=== PATIENT | female | born 1980 | race Caucasian/White ===

== ENCOUNTER 2017-10-12 17:24 | Emergency (ER) | payer OTHER ==
[~2017-10-12] VITALS: Ht 157.5 cm; Wt 68.0 kg
[~2017-10-12 17:24] MED LIST: ACHYD1T PO; DCS100C PO; HYDR1TAB PO; IBP800T PO; PREN-47 PO
--- NOTE | 2017-10-12 18:19 | ED Neck-Back Pain/Injury ---
General Chief Complaint: Head/Cervical Problems Stated Complaint: NECK PAIN Nursing Triage Note: PT REPORTS SHE WAS MOVING ALOT YESTERDAY AND TODAY WHEN SHE WAS TAKING A SHOWER SHE FELT A CRACK IN HER NECK AND HAS HAD STIFFNESS/PAIN SINCE. Nursing Sepsis Screen: No Definite Risk Source of Information: Patient, Other Exam Limitations: No Limitations History of Present Illness Date Seen by Provider: Oct 12, 2017 Time Seen by Provider: 18:07 Initial Comments Patient presents to ER by private conveyance with her significant other and chief complaint that night she was in the shower washing her hair not doing anything unusual but she felt a crack in her neck and she turned her neck sideways and started having some pain in her neck. She has history of chronic neck pain for which her outpatient provider was working up and had planned to do a C-spine x-ray but she has not got that done yet. She's been using ibuprofen 800 mg several times a day. She does not want anything that would make her drowsy. She does not have any incontinence or hesitancy of bowel or bladder. No numbness or falls. She is feeling a tingling sensation that goes from the base of her neck to the back of her head and she feels like she has gotten headaches from the same kind of neck pain in the past but not having one right now. She has no double vision, blurry vision, difficulty swallowing or breathing. Allergies and Home Medications Allergies Coded Allergies: No Known Drug Allergies (Unverified , 02/23/12) Home Medications Ibuprofen 800 Mg Tab, 800 MG PO Q8HR PRN, #30 Prescribed by: RAJAN NOVAK on 02/22/13 1531 Prednisone 20 Mg Tab, 20 MG PO BID for 5 Days, #10 Ref 0 Prescribed by: GISELA YADAV on 10/12/17 1820 Constitutional: No chills, No fever EENTM: No ear discharge, No ear pain Respiratory: No cough, No short of breath Cardiovascular: No chest pain, No palpitations Gastrointestinal: No constipation, No diarrhea, No nausea : No Past Blypeoe-Jnawvr-Hqbfhu Hx Patient Social History Alcohol Use: Occasionally Uses Recreational Drug Use: No Smoking Status: Former Smoker Former Smoker, Quit: Sep 29, 2012 Recent Foreign Travel: No Contact w/Someone Who Travel: No Recent Infectious Disease Expo: No Recent Hopitalizations: Yes (CHILDBIRTH, 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, URI IN HIGH SCHOOL) Physical Abuse: No Sexual Abuse: No Mistreated: No Fear: No Surgeries History of Surgeries: Yes (C/S X3 ) Surgeries: Section Respiratory History of Respiratory Disorde: No Cardiovascular History of Cardiac Disorders: No Neurological History of Neurological Disord: No Reproductive System Hx Reproductive Disorders: No Gastrointestinal History of Gastrointestinal Di: No Musculoskeletal History of Musculoskeletal Dis: Yes (HX OF NECK PAIN) Endocrine History of Endocrine Disorders: No HEENT History of HEENT Disorders: No Cancer History of Cancer: No Psychosocial History of Psychiatric Problem: No Suicide Risk Score: 0 Blood Transfusions History of Blood Disorders: Yes (ANEMIA) Family Medical History Significant Family History: Diabetes, Hypertension, Stroke Physical Exam Vital Signs Vital Sign - Last 12Hours 10/12/17 17:35 Pulse 105 Resp 18 B/P (MAP) 135/72 (93) Pulse Ox 100 Capillary Refill : Less Than 3 Seconds General Appearance: No Apparent Distress, WD/WN HEENT: PERRL/EOMI, Normal ENT Inspection, Pharynx Normal Neck: Normal Inspection, Supple, Limited Range of Motion (Secondary to pain and tenderness), No Tender Lateral, Tender Midline (Mildly tender at C6 and C7 along the vertebral spine but not laterally) Cardiovascular: No Edema, Normal Peripheral Pulses Respiratory: No Accessory Muscle Use, No Respiratory Distress Extremity: Normal Inspection, Non Tender, No Pedal Edema Neurologic/Psychiatric: Alert, Oriented x3, No Motor/Sensory Deficits, Normal Mood/Affect, cub reporter II-XII Norm as Tested Skin: Normal Color, Warm/Dry Progress/Results/Core Measures Results/Orders My Orders Orders - GISELA YADAV Cervical Spine 3 Views Or Less (10/12/17 18:13) Vital Signs/I&O Vital Sign - Last 12Hours 10/12/17 17:35 Pulse 105 Resp 18 B/P (MAP) 135/72 (93) Pulse Ox 100 Blood Pressure Mean: 93 Progress Note : Time: 18:17 Progress Note We discussed the potential workup and the patient would like to go get a C- spine know her from was not that severe. She is not in favor however of any medicine that'll make her drowsy so she does not want muscle relaxers. She would be okay with a short course of prednisone. She stated emphatically that she is not and that she will check a emergency test on her own at home. Diagnostic Imaging Diagonstic Imaging: Xray Plain Films/CT/US/NM/MRI: c-spine Comments No acute osseous abnormality, subluxation, fracture or misalignment of spine seen on plain film x-ray. [facility] [place], [place] NAME: [facility] REC#: [id number] PT STATUS: REG ER : 1980 PHYSICIAN: GISELA YADAV MD ADMIT DATE: 10/12/17/ER Draft Date of Exam:10/12/17 CERVICAL SPINE 3 VIEWS OR LESS INDICATION: Neck pain. COMPARISON: None available. TECHNIQUE: Three views of the cervical spine were obtained. FINDINGS: No acute fracture or traumatic malalignment. Cervical spine is straightened which could be positional or due to muscle spasm. No soft tissue swelling in the prevertebral space. Intervertebral disc space heights are well maintained. The patient is edentulous. IMPRESSION: No acute traumatic injury in the cervical spine by radiography. Dictated on workstation # [id number] Dict: 10/12/17 1844 Trans: 10/12/17 184 [facility] [id number] Interpreted by: JEREMIAH WHALEN MD Electronically signed by: Reviewed: Reviewed by Me Departure Impression Impression: Primary Impression: Neck pain Disposition: 01 HOME, SELF-CARE Condition: Stable Departure-Patient Inst. Decision time for Depature: 18:58 Referrals: NOEMI DOWNING MD (PCP/Family) Primary Care Physician Patient Instructions: Core Strengthening Exercises on Back or on Hands and Knees, Neck Sprain (DC) Add. Discharge Instructions: For the first couple days you can apply ice directly to your neck for 20 minutes every 4 hours. 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 You should also use ibuprofen 800 mg every 8 hours [id number] for Naprosyn/Aleve 2 capsules twice a day for the next 2 weeks. You can use Tylenol 1000 mg in addition to this every 8 hours as needed for pain. Plan to follow up with your primary care physician if your chronic neck pain continues to be an issue. Please review the handout on core strengthening exercises and seek to strengthen your neck and back to avoid further chronic back pain issues. All discharge instructions reviewed with patient and/or family. Voiced understanding. Scripts Prednisone (Prednisone) 20 Mg Tab 20 MG PO BID for 5 Days, #10 TAB 0 Refills Prov: GISELA YADAV 10/12/17 Copy Copies To 1: NOEMI DOWNING MD, TITUS J Oct 12, 2017 18:19
[2017-10-12] MEDS ORDERED: PRD20T PO ×2 (18:20→19:06)
--- NOTE | 2017-10-12 18:48 | Diagnostic Imaging Report ---
INDICATION: Neck pain. COMPARISON: None available. TECHNIQUE: Three views of the cervical spine were obtained. FINDINGS: No acute fracture or traumatic malalignment. Cervical spine is straightened which could be positional or due to muscle spasm. No soft tissue swelling in the prevertebral space. Intervertebral disc space heights are well maintained. The patient is edentulous. IMPRESSION: No acute traumatic injury in the cervical spine by radiography. Dictated by: Dictated on workstation # [id number]
[2017-10-12 19:03] VITALS: BP 135/72
--- OUTSIDE RECORDS SUMMARY | 2017-10-13 10:45 | XMS REPORT | Continuity of Care Document ---
Author Author [facility] Organization [facility] Address Unknown Phone Unavailable Allergies Active Description Code Type Severity Reaction Onset Reported/Identified Relationship to Patient Clinical Status Yes No Known Drug Allergies [id number] Drug Allergy Unknown N/A 02/23/2012 Medications There is no data. Problems Date Dx Coded Attending Type Code Diagnosis Diagnosed By 02/23/2012 Ot 646.83 PREG COMPL NEC-ANTEPART 02/23/2012 Ot 789.09 ABDOMINAL PAIN, OTHER SPECIFIED SITE 02/23/2012 Ot 847.9 SPRAIN OF BACK NOS 02/23/2012 Ot E000.8 OTHER EXTERNAL CAUSE STATUS 02/23/2012 Ot E928.9 ACCIDENT NOS 05/21/2012 Ot 644.03 THRT [facility] LAB[facility]-ANTEPART 07/17/2012 Ot 654.21 PREV DELIVRY W/ OR W/O MENT ANT 07/17/2012 Ot 655.71 DECR MOVEMNT DEL W/W/O MENTION OF 07/17/2012 Ot 658.01 OLIGOHYDRAMNIOS-DELIVER 07/17/2012 Ot V04.81 ND FOR PROPHYLACTIC VACCIN AND INOCULATI 07/17/2012 Ot V06.1 DIPHTHERIA- TETANUS-PERTUSSIS, COMBINED [ 07/17/2012 Ot V27.0 DELIVER- SINGLE LIVEBORN 02/22/2013 PRINCESS POE, RAJAN Moss Ot 786.50 CHEST PAIN NOS 02/22/2013 PRINCESS POE, RAJAN Moss Ot 786.52 PAINFUL RESPIRATION 04/09/2015 Ot 620.2 04/09/2015 Ot V28.89 05/17/2016 Ot 620.2 OVARIAN CYST NEC/NOS 05/17/2016 Ot V28.89 OTHER SPECIFIED SCREENING 05/29/2017 Ot 649.63 UTERINE SIZE DATE DISCREPANCY, ANTEPARTU 05/29/2017 Ot 644.03 THRT [facility] LAB[facility]-ANTEPART 05/29/2017 Ot 649.63 UTERINE SIZE DATE DISCREPANCY, ANTEPARTU 05/29/2017 Ot 654.23 PREV DELIVERY, ANTEPARTUM COND 05/29/2017 Ot 658.03 OLIGOHYDRAMNIOS-ANTEPAR 05/29/2017 Ot 654.23 PREV DELIVERY, ANTEPARTUM COND 05/29/2017 Ot V72.63 PRE- PROCEDURAL LABORATORY EXAMINATION 05/29/2017 Ot V74.8 SCREEN- BACTERIAL DIS NEC Procedures Code Description Performed By Performed On 72.9 INSTRUMENT DELIVERY NOS 07/14/2012 74.1 LOW CERVICAL 07/14/2012 Results There is no data. Encounters ACCT No. Visit Date/Time Discharge Status Pt. Type Provider Facility Loc./Unit Complaint [id number] 02/22/2013 13:10:00 02/22/2013 15:43:00 DIS Emergency PRINCESS OPE, RAJAN Moss [facility] ER PAIN IN CHEST UPPER BACK PAIN AND R ARM PAIN [id number] 07/14/2012 06:15:00 Document Registration [id number] 07/11/2012 11:54:00 Document Registration [id number] 06/06/2012 11:07:00 Document Registration [id number] 05/20/2012 09:04:00 Document Registration [id number] 03/28/2012 10:25:00 Document Registration [id number] 02/22/2012 23:11:00 Document Registration [id number] 12/14/2011 10:09:00 Document Registration
== END 2017-10-12 19:03 | disposition home or self-care (01) ==
LOC: EDUNIT# 17:24 → ER 17:26
DX: M54.2 Cervicalgia (principal); Z87.891 Personal history of nicotine dependence; Z87.59 Personal history of other complications of pregnancy, childbirth and the puerperium
CPT/HCPCS: 72040; 99282

== ENCOUNTER 2021-03-13 01:06 | Emergency (ER) | payer OTHER ==
[~2021-03-13] VITALS: Ht 158 cm; Wt 68.0 kg
[~2021-03-13 01:06] MED LIST changes: +PRD20T PO
[2021-03-13 01:15] VITALS: BP 128/78
--- NOTE | 2021-03-13 01:30 | ED Integumentary General ---
General Chief Complaint: Bite-Animal/Human/Insect Stated Complaint: L THIGH INSECT BITE Source: patient Exam Limitations: no limitations History of Present Illness Date Seen by Provider: Mar 13, 2021 Time Seen by Provider: 01:10 Initial Comments Patient to ER by private conveyance from home with chief complaint of a mildly painful mildly itchy red patch that has been growing since night, Saturday morning over her left thigh. She also had a little itchy rash in her right armpit and behind her right knee which have just about gone away. She says the redness is getting smaller and she is on doxycycline from [facility] however she was concerned with a little area of purple started to grow in the center of the rash. She is not sure what bit her. She was out with her kids fishing when it started. She is not having any fevers or chills. She is not having any dysuria diarrhea chest pain shortness of air. Allergies and Home Medications Allergies Coded Allergies: No Known Drug Allergies (Unverified , 02/23/12) Home Medications Ibuprofen 800 Mg Tab, 800 MG PO Q8HR PRN Prescribed by: RAJAN NOVAK on 02/22/13 1531 Prednisone 20 Mg Tab, 20 MG PO BID Prescribed by: GISELA YADAV on 10/12/17 1906 Patient Home Medication List Home Medication List Reviewed: Yes Review of Systems Review of Systems Constitutional: No chills, No diaphoresis EENTM: No ear discharge, No ear pain Respiratory: No cough, No short of breath Cardiovascular: No chest pain, No edema Gastrointestinal: No abdominal pain, No nausea, No vomiting Genitourinary: No discharge, No dysuria Musculoskeletal: No back pain, No joint pain Skin: change in color, pruritus, rash Past Rwzhsam-Abstwa-Qqdcln Hx Patient Social History Alcohol Use: Denies Use Smoking Status: Former Smoker Type Used: Cigarettes Former Smoker, Quit: Sep 29, 2012 Recent Hopitalizations: No Immunizations Up To Date Tetanus Booster (TDap): Unknown Seasonal Allergies Seasonal Allergies: No Past Medical History Surgeries: Yes (C/S X3 ) Section Respiratory: No Cardiac: No Neurological: No Reproductive Disorders: No Genitourinary: No Gastrointestinal: No Musculoskeletal: Yes (HX OF NECK PAIN) Endocrine: No HEENT: No Cancer: No Psychosocial: No Integumentary: Yes Recent Skin Changes Blood Disorders: Yes (ANEMIA) Family Medical History Diabetes, Hypertension, Stroke Physical Exam Vital Signs Capillary Refill : General Appearance: WD/WN, no apparent distress HEENT: PERRL/EOMI, pharynx normal Neck: full range of motion, normal inspection Cardiovascular: normal peripheral pulses, regular rate, rhythm Respiratory: no respiratory distress, no accessory muscle use Extremities: normal range of motion, normal capillary refill Neurologic/Psychiatric: alert, normal mood/affect, oriented x 3 Skin: other (Large round erythematous, macular rash centered around a small area of purple with 2 small possible punctate wounds on her left medial thigh. Rash is about 10 cm radius. Erythema is blanchable with a few little petechiae scattered throughout. No palpable fluctuance or induration.) Progress/Results/Core Measures Progress Progress Note : Time: 01:28 Progress Note Suspect she had a mild envenomation from a spider but since it has been 4 days it is dubious whether glucagon will have any benefit. It seems at the redness is getting better she only came in because of the new darkened center. Counseling was given on what to expect for him spider bite/envenomation. Probably this is immune systems reaction and cleaning up damaged tissue and it should resolve in the next couple weeks. We encouraged her to follow-up with her primary care doctor and continue taking the doxycycline. Return precautions were given. Patient is in agreement with this plan. Discussed skin emollients and capsaicin oil as well as warm, moist heat for pain. Tylenol and ibuprofen. Departure Impression Primary Impression: Spider bite wound Qualified Codes: T63.301A - Toxic effect of unspecified spider venom, accidental (unintentional), initial encounter Disposition: HOME, SELF-CARE Condition: Stable Departure-Patient Inst. Decision time for Depature: 01:29 Referrals: MIGNON FARIA MD,NOEMI Ocampo MD (PCP/Family) Primary Care Physician Patient Instructions: Spider Bites Add. Discharge Instructions: Warm moist heat applied over the area as necessary for pain or discomfort. Capsaicin oil may be helpful for pain. Loratadine/Claritin or Zyrtec/cetirizine 10 mg once or twice a day as necessary for itching. Return to the ER promptly for shortness of air, difficulty swallowing or other worrisome symptoms. This should continue to decrease in size and may have some funny discoloration in the center related to the immune system cleaning up the damaged tissue over the next 1 to 2 weeks. Follow-up with your primary care doctor in the next 1 to 2 weeks for reexamination. All discharge instructions reviewed with patient and/or family. Voiced und erstanding. GISELA YADAV Mar 13, 2021 01:30
== END 2021-03-13 01:45 | disposition home or self-care (01) ==
LOC: EDUNIT# 01:06 → ER 01:09
DX: S70.362A Insect bite (nonvenomous), left thigh, initial encounter (principal); Z87.891 Personal history of nicotine dependence; Z79.52 Long term (current) use of systemic steroids; W57.XXXA Bitten or stung by nonvenomous insect and other nonvenomous arthropods, initial encounter
CPT/HCPCS: 99283

== ENCOUNTER 2023-06-06 09:27 | Emergency (ER) | payer OTHER ==
[~2023-06-06] VITALS: Ht 157.5 cm; Wt 78.5 kg
[2023-06-06] MEDS ORDERED: NS IV 1000 ML 1,000 ML IV STA (09:55)
--- NOTE | 2023-06-06 09:59 | ED Abdominal Pain ---
General Chief Complaint: Abdominal/GI Problems Stated Complaint: ABD PAIN | DIARRHEA Source of Information: Patient Exam Limitations: No Limitations History of Present Illness Date Seen by Provider: Jun 06, 2023 Time Seen by Provider: 09:46 Initial Comments Patient is a 43-year-old female who presents to the emergency department today with a chief complaint of abdominal cramping, several bouts of bloody diarrhea onset around 130 this morning. Patient states it was nausea that initially woke her up with a lot of mouth watering. She states after she was able to go to the bathroom she had at least 5 subsequent bowel movements that were grossly bloody. She has never had anything like this before. She was thinking she might have food poisoning. She recently quit a very stressful job. She does not smoke she does not drink excessive caffeine. No family history of colon cancer. She is on semaglutide for weight management. She recently increased her dose this we ek. No fevers or chills. She is not nauseated currently. Her pain is a "3" right now it was a "12" in the waiting room. No burning with urination, urgency or frequency. No abnormal vaginal discharge. She is scheduled to start her menstrual cycle "any day". Not on control. Only prior abdominal surgeries are C-sections. Timing/Duration: 4-6 Hours Severity/Quality: Severe, Aching, Cramping Location: LLQ Radiation: No Radiation Activities at Onset: Sleeping Associated Symptoms: Nausea/Vomiting (Nausea without vomiting) Allergies and Home Medications Allergies Coded Allergies: No Known Drug Allergies (Unverified , 02/23/12) Patient Home Medication List Home Medication List Reviewed: Yes Ciprofloxacin HCl (Ciprofloxacin HCl) 500 Mg Tablet, 500 MG PO BID Prescribed by: JIMMY CASEY on 06/06/23 1323 Hydrocodone/Acetaminophen (Hydrocodone-Acetamin 5-325 mg) 5 Mg-325 Mg Tablet, 1 TAB PO Q6H PRN for PAIN-MODERATE (5-7) Prescribed by: JIMMY CASEY on 06/06/23 1324 Ibuprofen (Motrin) 800 Mg Tab, 800 MG PO Q8HR PRN Prescribed by: RAJAN NOVAK on 02/22/13 1531 Metronidazole (Metronidazole) 500 Mg Tablet, 500 MG PO BID Prescribed by: JIMMY CASEY on 06/06/23 1323 Prednisone (Prednisone) 20 Mg Tab, 20 MG PO BID Prescribed by: GISELA YADAV on 10/12/17 1906 Review of Systems Review of Systems Constitutional: see HPI EENTM: No Symptoms Reported Respiratory: No Symptoms Reported Cardiovascular: No Symptoms Reported Gastrointestinal: Abdominal Pain, Blood Streaked Stools, Nausea Genitourinary: No Symptoms Reported, Discharge Skin: no symptoms reported All Other Systems Reviewed Negative Unless Noted: Yes Past Qmcmqts-Vsovji-Wddbha Hx Patient Social History Tobacco Use?: No Use of E-Cig and/or Vaping dev: No Substance use?: No Alcohol Use?: No Pt feels they are or have been: No Immunizations Up To Date Tetanus Booster (TDap): Unknown Seasonal Allergies Seasonal Allergies: No Past Medical History Surgeries: Yes (C/S X3 ) Section Respiratory: No Cardiac: No Neurological: No Reproductive Disorders: No Genitourinary: No Gastrointestinal: No Musculoskeletal: Yes (HX OF NECK PAIN) Endocrine: No HEENT: No Cancer: No Psychosocial: No Integumentary: Yes Recent Skin Changes Blood Disorders: Yes (ANEMIA) Family Medical History Diabetes, Hypertension, Stroke Physical Exam Vital Signs Vital Signs - First Documented 06/06/23 09:40 Temp 36.4 Pulse 96 Resp 19 B/P (MAP) 130/88 (102) Pulse Ox 97 O2 Delivery Room Air Capillary Refill : Height/Weight/BMI Height: 5'2.00" Weight: 150lbs. oz. 68.646391gs; 27.00 BMI Method:Stated General Appearance: WD/WN, no apparent distress HEENT: PERRL/EOMI Neck: normal inspection Respiratory: lungs clear, normal breath sounds, no respiratory distress, no ac cessory muscle use Cardiovascular: regular rate, rhythm Peripheral Pulses: 2+ Radial Pulses (R), 2+ Radial Pulses (L) Gastrointestinal: soft, abnormal bowel sounds (Hypoactive); No distended; tenderness (Left lower quadrant) Extremities: normal range of motion, normal inspection, no pedal edema, normal capillary refill Neurologic/Psychiatric: alert, normal mood/affect, oriented x 3 Skin: normal color, warm/dry Progress/Results/Core Measures Results/Orders Lab Results Laboratory Tests Test 06/06/23 09:49 Range/Units White Blood Count 9.8 4.3-11.0 10^3/uL Red Blood Count 4.91 3.80-5.11 10^6/uL Hemoglobin 13.9 11.5-16.0 g/dL Hematocrit 41 35-52 % Mean Corpuscular Volume 84 80-99 fL Mean Corpuscular Hemoglobin 28 25-34 pg Mean Corpuscular Hemoglobin Concent 34 32-36 g/dL Red Cell Distribution Width 13.0 10.0-14.5 % Platelet Count 285 130-400 10^3/uL Mean Platelet Volume 10.3 9.0-12.2 fL Immature Granulocyte % (Auto) 0 % Neutrophils (%) (Auto) 76 H 42-75 % Lymphocytes (%) (Auto) 18 12-44 % Monocytes (%) (Auto) 6 0-12 % Eosinophils (%) (Auto) 0 0-10 % Basophils (%) (Auto) 0 0-10 % Neutrophils # (Auto) 7.4 1.8-7.8 10^3/uL Lymphocytes # (Auto) 1.7 1.0-4.0 10^3/uL Monocytes # (Auto) 0.6 0.0-1.0 10^3/uL Eosinophils # (Auto) 0.0 0.0-0.3 10^3/uL Basophils # (Auto) 0.0 0.0-0.1 10^3/uL Immature Granulocyte # (Auto) 0.0 0.0-0.1 10^3/uL Sodium Level 137 135-145 MMOL/L Potassium Level 3.5 L 3.6-5.0 MMOL/L Chloride Level 104 98-107 MMOL/L Carbon Dioxide Level 23 21-32 MMOL/L Anion Gap 10 5-14 MMOL/L Blood Urea Nitrogen 8 7-18 MG/DL Creatinine 0.73 0.60-1.30 MG/DL Estimat Glomerular Filtration Rate 104 BUN/Creatinine Ratio 11 Glucose Level 100 70-105 MG/DL Calcium Level 10.0 8.5-10.1 MG/DL Corrected Calcium 9.8 8.5-10.1 MG/DL Total Bilirubin 0.7 0.1-1.0 MG/DL Aspartate Amino Transf (AST/SGOT) 24 5-34 U/L Alanine Aminotransferase (ALT/SGPT) 30 0-55 U/L Alkaline Phosphatase 70 40-136 U/L Total Protein 7.8 6.4-8.2 GM/DL Albumin 4.3 3.2-4.5 GM/DL My Orders Orders - JIMMY CASEY MD Ed Iv/Invasive Line Start (06/06/23 09:55) Cbc And Automated Diff (06/06/23 09:55) Comprehensive Metabolic Panel (06/06/23 09:55) Urine Bedside (06/06/23 09:55) Ns Iv 1000 Ml (Ns Iv 1000 Ml) (06/06/23 09:55) Ct Abdomen/Pelvis W (06/06/23 10:43) Iohexol Injection (Omnipaque 350 Mg/Ml 1 (06/06/23 11:00) Ns (Ivpb) 100 Ml (Sodium Chloride 0.9% 1 (06/06/23 11:00) Medications Given in ED Vital Signs/I&O 06/06/23 06/06/23 09:40 13:31 Temp 36.4 36.4 Pulse 96 88 Resp 19 19 B/P (MAP) 130/88 (102) 126/79 Pulse Ox 97 97 O2 Delivery Room Air Room Air Progress Progress Note : Time: 16:00 Progress Note Patient seen and evaluated by me. Evaluation today includes physical exam, CBC, Chem-12, CT abdomen and pelvis with IV contrast. Patient's physical exam pertinent for well-developed well-nourished obese female in no acute distress. Heart is regular, lungs are clear. Abdomen is soft and tender in the left lower quadrant without involuntary guarding or rebound. No lower extremity edema. Vital signs are stable. Differential diagnosis includes gastroenteritis, colitis/diverticulitis. Labs independently reviewed and interpreted by me. Her CBC is normal, normal white blood cell count with 76% segmented neutrophils. Chem-12 remarkable only for mildly low potassium at 3.5. Radiologist read on her CT shows diffuse colonic wall thickening consistent with pancolitis. Patient is treated in the emergency department with a liter of normal saline. She did not require pain medications. As far as having her bloody stool she has a normal hemoglobin no concern for needing transfusion. I discussed with her the need for antibiotics over the next week, Cipro and Flagyl. These prescriptions are sent to her local pharmacy. Instructions for Tylenol and/or ibuprofen for pain management. Return precautions provided in both verbal and written format. Advised to follow-up with general surgery as she will likely need a colonoscopy after this infection is better. She verbalized understanding of the discharge instructions. All questions were sought and answered. Patient is stable for discharge Diagnostic Imaging Diagonstic Imaging: CT Comments [facility] [place], [place] NAME: KWAME DIXON [facility] REC#: [id number] PT STATUS: DEP ER : 1980 PHYSICIAN: JIMMY CASEY MD ADMIT DATE: 06/06/23/ER Signed Date of Exam:06/06/23 CT ABDOMEN/PELVIS W PROCEDURE: CT abdomen and pelvis with contrast. TECHNIQUE: Multiple contiguous axial images were obtained through the abdomen and pelvis after administration of intravenous contrast. Auto Exposure Controls were utilized during the CT exam to meet ALARA standards for radiation dose reduction. All CT scans use one or more of the following dose optimizing techniques: automated exposure control, MA and/or KvP adjustment based on patient size and exam type or iterative reconstruction. INDICATION: Severe abdominal pain and bloody stools. No prior studies are available for comparison. FINDINGS: Lung bases are clear. The liver and gallbladder are unremarkable. There is no biliary ductal dilatation. The pancreas and spleen are unremarkable. No adrenal mass is identified. Kidneys are unremarkable. Aorta is nonaneurysmal. Bowel loops are nonobstructed. There appears to be some generalized colonic wall thickening suggestive of nonspecific colitis. No free fluid or fluid collection is identified. The uterus and bladder are unremarkable. IMPRESSION: There appears to be generalized colonic wall thickening consistent with pancolitis. No bowel obstruction or abscess formation is identified. Dictated by: Dictated on workstation # [id number] Dict: 06/06/23 1132 Trans: 06/06/23 1608 [id number] Interpreted by: RONALD BOWENS MD Electronically signed by: RONALD BOWENS MD 06/06/23 1608 Departure Impression Primary Impression: Colitis Additional Impression: Abdominal pain Qualified Codes: R10.32 - Left lower quadrant pain Disposition: 01 HOME, SELF-CARE Condition: Improved Departure-Patient Inst. Decision time for Depature: 13:21 Referrals: MIGNON FARIA MD (PCP/Family) Primary Care Physician Patient Instructions: Colitis (DC) Add. Discharge Instructions: [place] diet over the next 48 hours, avoiding anything spicy, heavily fatty. Take the antibiotics as directed over the next 7 days, Flagyl/metronidazole and ciprofloxacin. It is a good idea to take an [id number] probiotic while you are on the antibiotics. I have prescribed you some hydrocodone as needed for more severe pain. Otherwise Tylenol and ibuprofen should be taken with food. If you develop a fever over 101 with worsening pain, bleeding, diarrhea or other emergent, concerning symptoms please return to the emergency room for reevaluation. Please contact your primary care doctor for a follow-up appointment. I have also put Dr. MADDEN's contact information on this paperwork. You likely will need a follow-up colonoscopy. Scripts Metronidazole (Metronidazole) 500 Mg Tablet 500 MG PO BID, #14 TAB 0 Refills Prov: JIMMY CASEY MD 06/06/23 Ciprofloxacin HCl (Ciprofloxacin HCl) 500 Mg Tablet 500 MG PO BID, #14 TAB Prov: JIMMY CASEY MD 06/06/23 Hydrocodone/Acetaminophen (Hydrocodone-Acetamin 5-325 mg) 5 Mg-325 Mg Tablet 1 TAB PO Q6H PRN for PAIN-MODERATE (5-7), #12 TAB Prov: JIMMY CASEY MD 06/06/23 Work/School Note: Work Release Form Date Seen in the Emergency Department: Jun 06, 2023 Return to Work: Jun 10, 2023 Copy Copies To 1: MIGNON FARIA MD Copies To 2: DENZEL MADDEN MD, KATHRYN M MD Jun 06, 2023 09:59
[2023-06-06 10:01] LABS: BASOPHILS % (AUTO) 0 % (0-10); EOSINOPHILS % (AUTO) 0 % (0-10); HEMATOCRIT 41 % (35-52); HEMOGLOBIN 13.9 g/dL (11.5-16.0); LYMPHOCYTES # (AUTO) 1.7 10^3/uL (1.0-4.0); LYMPHOCYTES % (AUTO) 18 % (12-44); MEAN CORPUSCULAR HEMOGLOBIN 28 pg (25-34); MEAN CORPUSCULAR HGB CONC 34 g/dL (32-36); MEAN CORPUSCULAR VOLUME 84 fL (80-99); MEAN PLATELET VOLUME 10.3 fL (9.0-12.2); MONOCYTES # (AUTO) 0.6 10^3/uL (0.0-1.0); MONOCYTES % (AUTO) 6 % (0-12); NEUTROPHILS # (AUTO) 7.4 10^3/uL (1.8-7.8); NEUTROPHILS % (AUTO) 76 % (42-75); PLATELET COUNT 285 10^3/uL (130-400); WHITE BLOOD COUNT 9.8 10^3/uL (4.3-11.0)
[2023-06-06 10:09] LABS: ALBUMIN 4.3 GM/DL (3.2-4.5); POTASSIUM 3.5 MMOL/L (3.6-5.0)
[2023-06-06 10:11] LABS: TOTAL PROTEIN 7.8 GM/DL (6.4-8.2)
[2023-06-06 10:13] LABS: BILIRUBIN,TOTAL 0.7 MG/DL (0.1-1.0)
[2023-06-06 10:15] LABS: CREATININE SERUM 0.73 MG/DL (0.60-1.30)
[2023-06-06] MEDS ORDERED: NS 100 ML (IVPB) BAG IV ONE (11:00)
[2023-06-06] MEDS ORDERED: IOHEXOL 350 MG/ML 100 ML (OMNIPAQUE 350) VIAL IV ONE (11:00)
--- NOTE | 2023-06-06 11:45 | Diagnostic Imaging Report ---
PROCEDURE: CT abdomen and pelvis with contrast. TECHNIQUE: Multiple contiguous axial images were obtained through the abdomen and pelvis after administration of intravenous contrast. Auto Exposure Controls were utilized during the CT exam to meet ALARA standards for radiation dose reduction. All CT scans use one or more of the following dose optimizing techniques: automated exposure control, MA and/or KvP adjustment based on patient size and exam type or iterative reconstruction. INDICATION: Severe abdominal pain and bloody stools. No prior studies are available for comparison. FINDINGS: Lung bases are clear. The liver and gallbladder are unremarkable. There is no biliary ductal dilatation. The pancreas and spleen are unremarkable. No adrenal mass is identified. Kidneys are unremarkable. Aorta is nonaneurysmal. Bowel loops are nonobstructed. There appears to be some generalized colonic wall thickening suggestive of nonspecific colitis. No free fluid or fluid collection is identified. The uterus and bladder are unremarkable. IMPRESSION: There appears to be generalized colonic wall thickening consistent with pancolitis. No bowel obstruction or abscess formation is identified. Dictated by: Dictated on workstation # [id number]
[2023-06-06] MEDS ORDERED: METR-145 PO (13:23)
[2023-06-06] MEDS ORDERED: CIPR500T5 PO (13:23)
[2023-06-06] MEDS ORDERED: ACHD5005 PO (13:23)
[2023-06-06 13:31] VITALS: BP 126/79
== END 2023-06-06 13:31 | disposition home or self-care (01) ==
LOC: EDUNIT# 09:27 → ER 09:29
DX: K52.9 Noninfective gastroenteritis and colitis, unspecified (principal); E87.6 Hypokalemia; E66.9 Obesity, unspecified; Z68.27 Body mass index [BMI] 27.0-27.9, adult
CPT/HCPCS: 36415; 74177; 80053; 82274; 84703; 85025